=== PATIENT | female | born 1980 | race Caucasian/White ===

== ENCOUNTER 2017-11-14 21:43 | Emergency (ER) | payer OTHER ==
[2017-11-14 22:27] LABS: BASOPHILS 0.4 % (0-2); HEMATOCRIT 44.3 % (36.0-48.0); HEMOGLOBIN 15.2 g/dL (12-16); IMMATURE GRANULOCYTES 0.3 % (0-5); LYMPHOCYTES 32.4 % (15-50); MCH 31.1 pg (26.0-34.0); MCHC 34.3 g/dL (31.0-37.0); MCV 90.6 fL (80.0-100.0); MEAN PLATELET VOLUME 10.9 fL (7.4-10.4); MONOCYTES 5.4 % (2-11); NEUTROPHILS 59.5 % (40-80); PLATELET COUNT 266 10x3/uL (130-400); RBC 4.89 10x6/uL (4.00-5.40); RDW 12.8 % (11.5-14.5); WBC 11.1 10x3/uL (4.8-10.8)
[2017-11-14 22:39] LABS: APTT 24.8 SECONDS (22.8-39.4); INR 0.94 (0.85-1.17); PROTIME 12.2 SECONDS (11.6-15.0)
[2017-11-14 22:41] LABS: APPEARANCE HAZY (CLEAR); BILIRUBIN NEGATIVE (NEGATIVE); COLOR YELLOW (YELLOW); GLUCOSE NEGATIVE (NEGATIVE); KETONE NEGATIVE (NEGATIVE); NITRITE NEGATIVE (NEGATIVE); PROTEIN NEGATIVE (NEGATIVE); UROBILINOGEN NORMAL (NORMAL)
[2017-11-14 22:44] LABS: ALBUMIN 3.9 g/dL (3.4-5.0); ANION GAP 15.6 mmol/L (8-16); BACTERIA FEW /hpf (NONE SEEN); BILIRUBIN - TOTAL 0.21 mg/dL (0.2-1.3); CALCIUM 9.3 mg/dL (8.5-10.1); CARBON DIOXIDE 25.3 mmol/L (21.0-32.0); CREATININE - SERUM 0.9 mg/dL (0.6-1.3); EPITHELIAL CELLS 0-5 /hpf (0-5); POTASSIUM - SERUM 3.9 mmol/L (3.5-5.1); PROTEIN - SERUM 7.9 g/dL (6.4-8.2); RED CELLS - URINE 0-5 /hpf (0-5); WHITE CELLS - URINE RARE /hpf (0-5)
[2017-11-14 22:45] LABS: AMORPHOUS SEDIMENT >1+ /lpf (NONE SEEN); GRANULAR CAST OCC /lpf (NONE SEEN); HYALINE CAST RARE /lpf (NONE SEEN)
== END 2017-11-15 01:06 | disposition home or self-care (01) ==
LOC: D.ER 21:43
PROVIDERS: Emergency Medicine
DX: R11.10 Vomiting, unspecified (principal); K29.00 Acute gastritis without bleeding; K80.20 Calculus of gallbladder without cholecystitis without obstruction; K58.9 Irritable bowel syndrome, unspecified; F17.200 Nicotine dependence, unspecified, uncomplicated

== ENCOUNTER → 2018-09-09 15:40 | Outpatient (CLI) | payer OTHER | END | disposition home or self-care (01) | LOC: D.CT 15:40 | DX: N20.0 Calculus of kidney (principal) ==

== ENCOUNTER → 2018-10-10 16:22 | Outpatient (CLI) | payer OTHER | END | disposition home or self-care (01) | LOC: D.LABREF 16:22 | DX: R31.9 Hematuria, unspecified (principal) ==

== ENCOUNTER 2018-10-27 06:43 | Day surgery (SDC) | payer OTHER ==
[~2018-10-27] VITALS: Ht 157.5 cm; Wt 90.7 kg
--- NOTE | ~2018-10-27 | OP ---
PATIENT NAME: EDMUNDO LOERA MEDICAL RECORD: [id number] :76 LOCATION:D.OPS ADMISSION DATE: SURGEON: ROBE KIRKLAND MD DATE OF OPERATION: 10/27/2018 SURGEON: Robe Kirkland MD ANESTHESIA: TIVA by Israel Garcia CRNA. DIAGNOSES: Microscopic hematuria, interstitial cystitis. PROCEDURES: Cystoscopy and intravesical Rimso instillation. FINDINGS: Single ureteral orifices bilaterally. No bladder tumors. Bladder inflammation. BLOOD LOSS: Minimal. SPECIMENS: None. CLINICAL HISTORY: This is a 38-year-old female, who has microscopic hematuria. She also has bilateral flank pain, suprapubic pain, and dyspareunia. She had CT scan of the abdomen and pelvis, which showed nothing wrong. Urine cytology is normal. She had a hysterectomy in January 2017 for the pelvic pain. This continues to hurt nevertheless. She has daytime urinary frequency every 2 hours and nocturia times 5-6. I suspect that she has interstitial cystitis as the cause of both microscopic hematuria and her pain and urinary frequency. She comes today to have cystoscopy to complete the hematuria workup. At the same time, if inflammation is found, we will treat the interstitial cystitis with intravesical Rimso. SHE IS ALLERGIC TO TORADOL, CITALOPRAM, AND DEMEROL. 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 DESCRIPTION OF PROCEDURE: The patient was given IV sedation. She was then placed into the dorsal lithotomy position and prepped and draped. A 17-Greenlandic cystoscope with 30-degree lens was used for visualization. No bladder tumors were seen, but diffuse bladder inflammation was noted. The bladder was then emptied through the cystoscope sheath. We then inserted a 16-Greenlandic red rubber catheter and 50 mL of Rimso solution was instilled into the bladder. The catheter was then removed, leaving the solution in the bladder. The patient was then awakened and brought back to the preoperative holding area. TRANSINT:[id number] Voice Confirmation ID: [id number] DOCUMENT ID: [id number] ROBE KIRKLAND MD at 1402 CC: [id number] DICTATION DATE: 10/27/18 1036 [facility] CROSSING GUARD: 10/27/18 1343 [facility] 10/27/[address] [id number]
[~2018-10-27 06:43] MED LIST: AMBIEN10 MG PO; ESTRACE1 MG PO; FENOFIBRATE160 MG PO; IBUPROFEN800 MG
[2018-10-27 06:59] LABS: HEMATOCRIT 42.7 % (36.0-48.0); HEMOGLOBIN 14.5 g/dL (12-16); MCH 31.4 pg (26.0-34.0); MCV 92.4 fL (80.0-100.0); MEAN PLATELET VOLUME 10.6 fL (7.4-10.4); RBC 4.62 10x6/uL (4.00-5.40)
[2018-10-27 07:28] VITALS: BP 118/73; Ht 157.5 cm; Wt 90.7 kg
== END 2018-10-27 12:05 | disposition home or self-care (01) ==
LOC: D.OPS 06:43 → D.PAN 08:50 → D.OPS 09:00 → D.PAN 09:30 → D.OPS 09:30
PROVIDERS: Anesthesiology
DX: R31.29 Other microscopic hematuria (principal); N30.11 Interstitial cystitis (chronic) with hematuria; Z01.812 Encounter for preprocedural laboratory examination